=== PATIENT | female | born 1995 ===

== ENCOUNTER 2019-04-17 15:11 | Outpatient (CLI) | payer OTHER ==
--- NOTE | 2019-04-17 16:37 | ULT ---
PELVIC ULTRASOUND: 04/17/19 Transabdominal and endovaginal ultrasound of pelvis performed. INDICATIONS: Pelvic pain. Uterus has a normal sonographic appearance. Endometrial stripe appears normal. It is measured at 3 to 4 mm. Ovaries are identified and appear unremarkable. Color Doppler with spectral analysis demonstra carmelita blood flow to both ovaries. No free fluid identified. IMPRESSION: Unremarkable pelvic ultrasound. POS: OFF
== END 2019-04-17 15:12 | disposition home or self-care (01) ==
LOC: BICULT 15:11
DX: R10.2 Pelvic and perineal pain (principal)
CPT/HCPCS: 76856